=== PATIENT | female | born 1990 | race Caucasian/White ===

== ENCOUNTER 2016-08-11 15:09 | Emergency (ER) | payer MEDICAID ==
--- NOTE | ~2016-08-11 | CT4 ---
[facility] A Service of [facility] RADIOLOGY TEXT RESULTS PATIENT: PRADEEP SCHRADER LOCATION: [facility] : 88 UNIT #: [id number] AGE: [address]: Maura Connell SEX: F ORDER DR: [id number] [facility]. [place], [place] [address] [id number] E MR#: [id number] Acc #: [id number] NAME: PRADEEP SCHRADER : 1990 SEX: F STUDY DATE/TIME: 08/11/2016 14:53 UNIT: DANY ROOM: STUDY DESCRIPTION: CT Abd and Pelv Wo Cont Attending Physician: Maura Connell Pa-C Ordering Physician: Maura Connell Pa-C Primary Care Physician: Amado Kennedy MEDICAL IMAGING REPORT This report is preliminary unless electronic signature is present EXAM CT abdomen and pelvis CT without contrast. HISTORY Right-sided renal colic for the past week with a history of kidney stones. COMPARISON STUDIES 06/17/2015 TECHNIQUE Axial images were obtained without contrast. This CT exam was performed with one or more of the following radiation dose reduction techniques: automatic exposure control, adjustment of mA and/or kV according to patient size, and iterative reconstruction. FINDINGS No intrarenal calcifications are seen and no hydronephrosis is noted on either side. Clips are seen from cholecystectomy. The liver, spleen, and pancreas are normal in size. No ureteral stones are seen. No bladder stones are noted. The appendix is normal and there are no distended bowel loops. No evidence of adenopathy. IMPRESSION Negative abdomen and pelvis CT. No evidence of stone disease or obstruction. Normal appendix. No acute or inflammatory changes are seen in the abdomen or pelvis. Dictated by... Usman Xavier M.D. [facility] A Service of [facility] RADIOLOGY TEXT RESULTS PATIENT: PRADEEP SCHRADER LOCATION: [facility] : 88 UNIT #: [id number] AGE: [address]: Maura Connell SEX: F ORDER DR: THIS IS AN ELECTRONICALLY VERIFIED REPORT Usman Xavier M.D. at 08/12/2016 8:07 AM ESTEBAN/cali TD: 08/11/2016 17:10 JOB #: [id number] MEDICAL IMAGING REPORT Page 1 of 1 COPY
[2016-08-11 14:20] LABS: URINE SOURCE CLEAN CATCH
[2016-08-11 14:28] LABS: URINE APPEARANCE CLEAR; URINE BILIRUBIN NEG (NEG); URINE BLOOD NEG (NEG); URINE COLOR YELLOW; URINE GLUCOSE NEG (NEG); URINE KETONE 2+ (NEG); URINE LEUKOCYTE ESTERASE TRACE (NEG); URINE NITRATE NEG (NEG); URINE PROTEIN NEG (NEG); URINE SPECIFIC GRAVITY 1.015 (1.003-1.035)
[2016-08-11 14:31] LABS: U HYALINE CASTS AUWI 0-2 /[LPF]; URINE BACTERIA AUWI NEG (NEGATIVE); URINE SQUAMOUS EPITHELIAL CELL OCC /[HPF]
[2016-08-11 14:32] LABS: BASOPHIL% 0.6 % (0-2.5); EOSINOPHIL% 0.3 % (0.0-7.0); HEMATOCRIT 44.6 % (35.0-45.0); HEMOGLOBIN 15.1 gm/dL (12.0-16.0); LYMPHOCYTE# 1.2 X10e3 (1.0-3.5); LYMPHOCYTE% 32.5 % (17.0-45.0); MEAN CELL VOLUME 87.3 FL (83-96); MEAN CORPUSCULAR HEMOGLOBIN 29.6 PG (28-34); MEAN CORPUSCULAR HGB CONC 33.8 g/dL (30-36); MEAN PLATELET VOLUME 7.8 FL (6.5-11.5); MONOCYTE# 0.3 X10e3 (0-1.0); MONOCYTE% 8.8 % (3.0-12.0); NEUTROPHIL# 2.1 X10e3 (1.5-7.1); NEUTROPHIL% 57.8 % (40-75); PLATELET COUNT 259 X10e3 (140-420); RED CELL DISTRIBUTION WIDTH 12.9 % (11.0-15.5); WHITE BLOOD COUNT 3.6 X10e3 (4.0-10.5)
[2016-08-11 14:35] LABS: CULTURE INDICATED? NO
[2016-08-11 14:38] LABS: DIFF IND NO
[2016-08-11 14:53] LABS: BUN/CREATININE RATIO 15.71; CALCIUM SERUM 9.6 mg/dL (8.4-10.2); CREATININE SERUM 0.7 mg/dL (0.6-1.4); GLOM FILT RATE Estimated 118.7 mL/min (>60); POTASSIUM 3.5 mmol/L (3.5-5.1)
[~2016-08-11 15:09] MED LIST: ALBUTEROL17 GM INH; BENTYL20 MG PO; BIRTH CONTROL PILL PO; EFFEXOR PO; HYDROCODONE-APA1 T57 PO; NEXIUM; PAXIL; ZOLOFT100 MG PO
== END 2016-08-11 16:20 | disposition home or self-care (01) ==
LOC: CED 15:09
PROVIDERS: Physician Assistant Medical
DX: R10.9 Unspecified abdominal pain (principal); Z87.442 Personal history of urinary calculi; Z90.49 Acquired absence of other specified parts of digestive tract; Z88.1 Allergy status to other antibiotic agents
CPT/HCPCS: 74176; 80048; 81003; 84703; 85025; 99284; J1885; J2405